=== PATIENT | male | born 1960 | race Caucasian/White ===

== ENCOUNTER 2025-11-11 10:01 | Emergency (ER) | payer MEDICARE, OTHER ==
[~2025-11-11] VITALS: Ht 177.8 cm; Wt 98.2 kg
[2025-11-11 11:26] VITALS: BP 153/89; PULSE 68; RESP 16; TEMP 98.2; O2SAT 96
--- NOTE | 2025-11-11 11:34 | ED.PDOC ---
History of Present Illness(SKN HPI Comments The patient presents for removal of scalp stitches placed 12 days before this visit. The patient reports having nine stitches. Chief Complaint: Suture Removal Time Seen by MD: 10:07 History of Present Illness: Nurses Notes, Medications, Allergies Allergies: Coded Allergies: NO KNOWN ALLERGIES (Unverified , 11/11/25) Information Source: Patient Mode of Arrival: Ambulatory All Other Systems: Reviewed and Negative (per hpi) Physical Exam General Appearance: No Apparent Distress, Normal HEENT: Normal ENT Inspection, Pharynx Normal, TMs Normal Neck: Full Range of Motion, Non-Tender, Normal, Normal Inspection Respiratory: Chest Non-Tender, Lungs Clear, No Accessory Muscle Use, No R espiratory Distress, Normal Breath Sounds Cardiovascular: No Edema, No JVD, No Murmur, No Gallop, Normal Peripheral Pulses, Regular Rate/Rhythm Breast Exam: Deferred Gastrointestinal: No Organomegaly, Non Tender, No Pulsatile Mass, Normal Bowel Sounds, Soft Genitalia: Deferred Pelvic: Deferred Rectal: Deferred Extremities: No calf tenderness, Normal capillary refill, Normal inspection, Normal range of motion, Non-tender, No pedal edema Musculoskeletal : Apperance: Normal Neurologic: Alert, oncology physician II-XII nml as Tested, No Motor Deficits, Normal Affect, Normal Mood, No Sensory Deficits Cerebellar Function: Normal Reflexes: Normal Skin: Dry, Normal Color, Warm Lymphatic: No Adenopathy Was a procedure done? Was a procedure done?: No Differential Diagnosis (INTG) Differential Diagnosis: Other X-Ray, Labs, Meds, VS Vital Signs Date Time Temp Pulse Resp B/P (MAP) Pulse Ox O2 Delivery O2 Flow Rate FiO2 11/11/25 11:26 98.2 68 16 153/89 (110) 96 98.2 11/11/25 11:26 68 16 96 Room Air 11/11/25 10:03 97.6 68 16 153/89 96 97.6 X-Ray, Labs, Meds, VS Comment The patient presents for removal of nine scalp sutures placed 12 days before this visit, with no other symptoms or concerns reported. The timing is appropriate for suture removal, and there are no reported complications. Scalp sutures placed 12 days prior, appropriate for removal at this time. No evidence of complications reported. -Remove nine scalp sutures No further follow-up discussed. Return if any concerns after suture removal. Time of 1ST Reevaluation: 11:33 Reevaluation 1ST: Improved Patient Education/Counseling: Diagnosis, Treatment Family Education/Counseling: Diagnosis, Treatment SEPSIS Sepsis Screen Date sepsis recognized/suspect: Nov 11, 2025 Time Sepsis recognized/suspect: 1006 Recent Procedure: No On Antibiotic Therapy: No Respiratory Rate >20: No Heart Rate >90: No Temp<36 C (96.8 F) or >38.3 C: No SBP <90 or MAP <65 mmHG: No New Acute Mental Status Change: No Is the patient on CPAP, BIPAP,: No Vital Signs Date Time Temp Pulse Resp B/P (MAP) Pulse Ox O2 Delivery O2 Flow Rate FiO2 11/11/25 11:26 98.2 68 16 153/89 (110) 96 98.2 11/11/25 11:26 68 16 96 Room Air 11/11/25 10:03 97.6 68 16 153/89 96 97.6 Departure 1 Departure Time of Disposition: 11:33 Impression: Primary Impression: Visit for suture removal Disposition: 01 HOME / SELF CARE / HOMELESS Condition: Stable Discharged With: Self Critical Care Note Critical Care Time?: No Stability Stability form required: No Heart Score Heart Score: Heart Score Response (Comments) Value History N/A 0 EKG N/A 0 Age N/A 0 Risk Factors N/A 0 Troponin N/A 0 Total 0 [facility] REGISTERED NURSE Nov 11, 2025 11:34
== END 2025-11-11 11:45 | disposition home or self-care (01) ==
LOC: ER 10:01
DX: S01.01XD Laceration without foreign body of scalp, subsequent encounter (principal); Z79.899 Other long term (current) drug therapy; X58.XXXD Exposure to other specified factors, subsequent encounter